=== PATIENT | female | born 1980 | race Asian ===

== ENCOUNTER 2022-12-17 08:39 | Outpatient (CLI) | payer OTHER | END 2022-12-17 08:40 | disposition home or self-care (01) | LOC: CSHMAMMO 08:39 | PROVIDERS: ATTEND Student in an Organized Health Care Education/Training Program | DX: Z12.31 Encounter for screening mammogram for malignant neoplasm of breast (principal); N64.89 Other specified disorders of breast | CPT/HCPCS: 77063; 77067 ==

== ENCOUNTER 2022-12-24 08:40 | Outpatient (CLI) | payer OTHER | END 2022-12-24 08:41 | disposition home or self-care (01) | LOC: CSHMAMMO 08:40 | PROVIDERS: ATTEND Student in an Organized Health Care Education/Training Program | DX: N64.89 Other specified disorders of breast (principal); R92.8 Other abnormal and inconclusive findings on diagnostic imaging of breast | CPT/HCPCS: G0279 ==